=== PATIENT | male | born 1990 | race Caucasian/White ===

== ENCOUNTER 2022-02-21 08:06 | Emergency (ER) | payer OTHER ==
[~2022-02-21] VITALS: Ht 169.7 cm; Wt 72.3 kg
[2022-02-21 08:14] VITALS: BP 144/92
--- NOTE | 2022-02-21 08:18 | NUR ---
PATIENT AMBULATED TO BED 11.
[2022-02-21] MEDS ORDERED: KETOROLAC 60 MG/2 ML VIAL IM ONE (08:20)
--- NOTE | 2022-02-21 08:20 | NUR ---
31 Y/O MALE C/O BACK PAIN X 2 MONTHS ALONG WITH R HIP PAIN AND L HEEL PAIN THAT IS WORSENING WITH MOVEMENT AND AMBULATION + DYSURIA. 8/10 PAIN UNABLE TO DESCRIBE QUALITY. DENIES FEVER, CHILLS, SOB, CP, NUMBNESS, TINGLING TO EXTREMITIES. DENIES TRAUMA OR INJURY. TRIED ADVIL 2 WEEKS AGO WITH MILD RELIEF. RESPIRATIONS EVEN AND UNLABORED.
--- NOTE | 2022-02-21 08:53 | NUR ---
Patient being evaluated by DR THOMPSON at bedside.
--- NOTE | 2022-02-21 08:57 | NUR ---
Lalito gomez in [facility] - 02/21/22 at [address] THOMPSON AT [facility] FOR EVALUATION
[2022-02-21] MEDS ORDERED: IBUP-2213 PO (09:07)
[2022-02-21] MEDS ORDERED: ACET-8386 PO (09:07)
[2022-02-21 09:10] VITALS: BP 144/92
--- NOTE | 2022-02-21 09:10 | NUR ---
Patient discharged with v/s stable. Written and verbal after care instructions about back pain given and explained. Patient alert, oriented and verbalized understanding of instructions. Ambulatory with steady gait. All questions addressed prior to discharge. ID band removed. Patient advised to follow up with PMD. Rx of Ibuprofen and Stewart given. Patient educated on indication of medication including possible reaction and side effects. Opportunity to ask questions provided and answered.
== END 2022-02-21 09:10 | disposition home or self-care (01) ==
LOC: MED 08:06
DX: M54.50 Low back pain, unspecified (principal)
CPT/HCPCS: 81002; 96372; 99283; J1885